=== PATIENT | male | born 1945 | race Hispanic/Latino ===

== ENCOUNTER → 2024-03-04 | Outpatient (CLI) | payer MEDICARE | END | disposition home or self-care (01) | LOC: SHCH 10:57 | PROVIDERS: ATTEND Internal Medicine Cardiovascular Disease | DX: I87.1 Compression of vein (principal); I87.2 Venous insufficiency (chronic) (peripheral); I73.9 Peripheral vascular disease, unspecified | CPT/HCPCS: 93925; 93970 ==

== ENCOUNTER 2024-10-07 19:04 | Emergency (ER) | payer MEDICARE ==
[~2024-10-07] VITALS: Ht 165.1 cm; Wt 88.0 kg
[~2024-10-07 19:04] MED LIST: CHOL2000 PO; LISI10TA24 PO; METF-527 PO; PROP10TA10 PO; ROSU5TAB51 PO
--- NOTE | 2024-10-07 19:16 | ERN ---
ED Note History of Present Illness Stated Complaint: RT LEG PAIN Chief Complaint: Lower Extremity Pain/Injury Time Seen by MD: 19:05 Time Seen by Midlevel: 19:10 Dictation: Mr. Canseco is a 79 year old gentleman with history of hypertension, hyperlipidem ia, type II DM, and chronic low back pain/sciatica who into the emergency department this evening for evaluation of right leg pain. He reports chronic low back pain/sciatica as well as generalized weakness. He states for the past 24 hours he has been experiencing pain in right hip radiating down leg to knee. He also reports blood glucose readings as well as frequent urination. He denies trauma/fall, fever, chills, shortness of breath, cough, chest pain, palpitations, edema, abdominal pain, nausea, vomiting, diarrhea, dysuria, incontinence bowel/bladder, saddle anesthesia, headache, dizziness, or focal weakness/paresthesia. He states he has tried topical analgesic but pain persists. Currently he rates pain 10/10. Allergies: Coded Allergies: ibuprofen (Unverified Allergy, Unknown, 04/05/24) Home Meds Reported Medications Cholecalciferol (Vitamin D3) (Vitamin D3) 50 Mcg (2000 Unit) Capsule, 1 CAP PO DAILY for 30 Days, #30 CAP 0 Refills 04/05/24 Rosuvastatin Calcium (Rosuvastatin Calcium) 5 Mg Tablet, 1 TAB PO DAILY for high cholesterol for 30 Days, #30 TAB 0 Refills 04/05/24 Lisinopril (Lisinopril) 10 Mg Tablet, 10 MG PO BID, TAB 04/05/24 Propranolol HCl (Propranolol HCl) 10 Mg Tablet, 10 MG PO TID, TAB 04/05/24 Metformin HCl (Metformin HCl ER) 1,000 Mg Tab.er.24, 1000 MG PO BID 04/05/24 Past Medical History Past Medical History: Diabetes-Type II, High Cholesterol, Hypertension, Other Additional Past Medical Hx: SCIATIC Surgical History: Cholecystectomy, Other Surgical History Other: HERNIA, PITUITARY PSYCH History: no pertinent psych hx Social History: Negative, Lives with family RN Note Reviewed/Agreed w/PFSH: Yes Review of System Dictation REVIEW OF SYSTEMS: CONSTITUTIONAL: Patient denies fevers, chills, sweats and weight changes. EYES: Patient denies any visual symptoms. EARS, NOSE, AND THROAT: No difficulties with hearing. No symptoms of rhinitis or sore throat. CARDIOVASCULAR: Patient denies chest pains, palpitations, orthopnea and paroxysmal nocturnal dyspnea. RESPIRATORY: No dyspnea on exertion, no wheezing or cough. GI: No nausea, vomiting, diarrhea, constipation, abdominal pain, hematochezia or melena. Denies bowel incontinence : No urinary hesitancy or dribbling. No abnormal urethral discharge. Denies incontinence. Reports frequent urination. MUSCULOSKELETAL: Reports history of chronic back pain/sciatica. Reports pain right hip radiating down like to knee. Rates pain 10/10. NEUROLOGIC: No chronic headaches, no seizures. Patient denies numbness, tingling or weakness. No saddle anesthesia. PSYCHIATRIC: Patient denies problems with mood disturbance. No problems with anxiety. ENDOCRINE: No excessive urination or excessive thirst. DERMATOLOGIC: Patient denies any rashes or skin changes. Initial Vital Sign VS Vital Signs Date Time Temp Pulse Resp B/P (MAP) Pulse Ox O2 Delivery O2 Flow Rate FiO2 10/07/24 19:05 99.0 74 20 139/53 98 10/07/24 21:00 Room Air* 0 21 Physical Exam Dictation Vital signs: Reviewed. Afebrile Constitutional: No acute distress. Non-toxic appearing. Head/Face: Normocephalic, atraumatic. Eyes: Periorbital areas with no swelling, redness, or edema. Lids and lashes are normal. Conjunctival injection is absent. Sclera anicteric. Pupils equal, round, reactive to light. ENT: Pinnas intact and no signs of trauma or erythema. Ear canals clear and no discharge. TMs no erythema. No nasal discharge or bleeding noted. Oropharynx with no exudate, redness, swelling, masses, exudates, or evidence of obstruction. Uvula midline. Mucous membranes moist. Neck: Trachea midline, no masses palpated, and no cervical lymphadenopathy. No swelling. Supple, full range of motion. Chest/Axilla: No tenderness, no crepitus, no paradoxical movement, no retractions. Cardiovascular: Regular rate, regular rhythm, no murmur, no gallops. Symmetric pulses. No peripheral edema. Respiratory: Respirations even and unlabored. Lung sounds clear; no wheezes, rales or rhonchi. Room air SpO2 98% Gastrointestinal: Inspection is normal. No distention is appreciated. Bowel sounds are normal. No mass or organomegaly . There is no tenderness. No rebound. No rigidity. No voluntary or involuntary guarding. No [place]agua's sign. Urine cloudy/yellow. Neurological: Normal speech, gross motor function intact, gross sensory function intact. No focal weakness/Paresthesia. Musculoskeletal/Extremities: All extremities have full range of motion, Symmetric pulses. There is tenderness upon palpation lumbar region; no step- offs, crepitus/deformity noted. Integumentary: Intact. Skin is normal color, warm and dry. Cap refill less than 3 seconds. Results (Laboratory/Radiology) Laboratory/Radiology Laboratory Tests Test 10/07/24 19:42 10/07/24 19:46 Urine Color LIGHT-YELLOW (YELLOW) Urine Appearance CLEAR (CLEAR) Urine pH 5.5 (5.0-8.0) Urine Specific [place] 1.018 (1.001-1.031) Urine Protein NEGATIVE mg/dL (NEGATIVE) Urine Glucose (UA) NEGATIVE mg/dL (NEGATIVE) Urine Ketones 5 mg/dL (NEGATIVE) H Urine Occult Blood NEGATIVE (NEGATIVE) Urine Nitrate NEGATIVE (NEGATIVE) Urine Bilirubin NEGATIVE mg/dL (NEGATIVE) Urine Urobilinogen 0.2 mg/dL (0.2-1.0) Urine Leukocyte Esterase 500 Dino/uL (NEGATIVE) H Urine RBC 6-10 /HPF (0-1) H Urine WBC 11-25 /HPF (0-1) H Urine Squamous Epithelial Cells RARE /HPF (0-2) Urine Bacteria RARE /HPF (None Seen) Urine Yeast with Hyphae RARE /HPF (None Seen) White Blood Count 9.4 K/uL (4.8-10.8) Red Blood Count 4.24 MIL/uL (4.50-6.20) L Hemoglobin 12.8 g/dL (14.0-18.0) L Hematocrit 38.9 % (42-54) L Mean Corpuscular Volume 91.7 fL (79-99) Mean Corpuscular Hemoglobin 30.2 pg (27.0-33.0) Mean Corpuscular Hemoglobin Concent 32.9 g/dL (32.0-36.0) Red Cell Distribution Width 14.3 % (11.0-15.5) Platelet Count 185 K/uL (130-400) Mean Platelet Volume 11.2 fL (7.5-10.5) H Immature Granulocyte % (Auto) 0.5 % (0-1) Neutrophils (%) (Auto) 67.4 % (40.0-77.0) Lymphocytes (%) (Auto) 13.5 % (21.0-51.0) L Monocytes (%) (Auto) 14.9 % (3.0-13.0) H Eosinophils (%) (Auto) 2.8 % (0.0-8.0) Basophils (%) (Auto) 0.9 % (0.0-5.0) Neutrophils # (Auto) 6.3 K/uL (1.8-7.7) Lymphocytes # (Auto) 1.3 K/uL (1.0-4.8) Monocytes # (Auto) 1.4 K/uL (0.1-1.0) H Eosinophils # (Auto) 0.26 K/uL (0.00-0.70) Basophils # (Auto) 0.08 K/uL (0.00-0.20) Absolute Immature Granulocyte (auto 0.05 K/uL (0-1) Nucleated Red Blood Cells 0.0 % (0.0-0.19) Sodium Level 136 mmol/L (136-145) Potassium Level 4.2 mmol/L (3.5-5.1) Chloride Level 102 mmol/L (101-111) Carbon Dioxide Level 25 mmol/L (21-32) Blood Urea Nitrogen 13 mg/dL (7-18) Creatinine 0.6 mg/dL (0.5-1.3) Glomerular Filtration Rate Calc 99 mL/min (>90) Random Glucose 156 mg/dL (70-105) H Total Calcium 9.3 mg/dL (8.5-10.1) CT Scan Comment: PATIENT: ONEIDA CANSECO MR#: [id number] : 1945 SEX: M AGE: 79 LOCATION: [facility] ORDER 16 STATUS: REG ER REPORT#: [id number] SERVICE 12 REASON: R lumbar pain radiates right leg ORDERING PHYSICIAN: ANGELIKA QUINONEZ NP PROCEDURE: L SPIN WO - CT LUMBAR SPINE W/O CONTRAST CT LUMBAR SPINE W/O CONTRAST CLINICAL HISTORY: R lumbar pain radiates right leg TECHNIQUE: Sequential axial images of lumbar spine without contrast and with sagittal and coronal reconstructions. CT was performed with one or more of the following dose reduction techniques: automated exposure control, adjustment of the mA and/or kV according to patient size, or use of iterative reconstruction technique COMPARISON: None FINDINGS: There is grade 2 anterolisthesis of L5 on S1 secondary to bilateral pars defects at L5 with accentuation of the normal lumbar lordosis and multilevel vacuum disc phenomena and bony ossified production. There is multilevel central canal and neural foraminal stenosis most advanced at L4-5 and L5-S1. 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 DICTATED BY: RIKKI ALAMO DO DATE: 10/07/242017 ELECTRONICALLY SIGNED BY: RIKKI ALAMO DO DATE: 10/07/242022 ED Course ED Course Orders Procedure Category Date Status Time Ct Lumbar Spine W/O CT 10/07/24 Resulted Contrast 19:13 Diazepam 5 Mg/Ml 2 Ml PHA 10/07/24 Complete Syg (Valium 5 Mg/M 19:30 Acetaminophen With PHA 10/07/24 Complete Codeine (Tylenol-Code 19:30 Us Venous Doppler US 10/07/24 Resulted Unilateral 19:26 Urinalysis Profile LAB 10/07/24 Complete 19:26 Cbc With Differential LAB 10/07/24 Complete 19:30 Basic Metabolic Panel LAB 10/07/24 Complete 19:30 Culture Urine EMELY 10/07/24 In Process 20:00 Current Medications Medications (Trade) Dose Ordered Sig/Ashley Route PRN Reason Start Time Stop Time Status Last Admin Dose Admin Acetaminophen/ Codeine Phosphate (TYLenol-coDEINE TAB) 1 tab ONCE ONCE PO 10/07/24 19:30 10/07/24 19:31 DC 10/07/24 19:22 Diazepam (VALium 5 MG/ML 2 ML SYG) 5 mg ONCE ONCE IM 10/07/24 19:30 10/07/24 19:31 DC 10/07/24 19:22 Vital Signs Date Time Temp Pulse Resp B/P (MAP) Pulse Ox O2 Delivery O2 Flow Rate FiO2 10/07/24 21:00 98.6 72 18 130/55 95 Room Air* 0 21 10/07/24 19:05 99.0 74 20 139/53 98 Vital signs remained stable; afebrile and normotensive with room air SpO2 95- 98%. Patient is able to ambulate but is experiencing increased pain in that right hip. CT scan of the lumbar spine revealed bilateral pars defects at L5 with resulting grade 2 anterolisthesis of L5 on S1 as well as multilevel degenerative changes of the spine with advanced central canal and neuroforaminal stenosis demonstrated at L4-5 and L5-S1. UA positive for leukocyte esterase, bacteria, and UWBC 11-25; culture pending. While in the ED he received doses Valium, Tylenol #3 and Bactrim DS. Findings were discussed with patient and family and all questions were answered. Recommend follow up with his PCP on Wednesday. Medical Decision Making MDM MDM: Differential diagnosis: Lumbar spine injury, spinal stenosis, UTI Rationale: Tests considered and ordered secondary to shared decision making include: Lab, CT Previous outside records reviewed: Old ER visits. Risk of complication and/or morbidity or mortality of patient management: None Medications-Per medication reconciliation Need for hospitalization: Patient does not meet criteria for hospitalization. Need for emergency major/minor surgery: No There are no social concerns with this patient. Prescription drug management: Bactrim DS, Flexeril Prescriptions will include symptomatic care Patient's prior external medical records from other ER visits were reviewed by me as indicated. Prior testing and results from previous visits were reviewed. Prior tests were taken into account with medical decision making and resource utilization, independent historian/historians were used to obtain complete medical history. I independently interpreted the test that were performed, results were reviewed by me and considered findings on radiology if ordered. Medical management and examination interpretation discussions were had by me with other qualified healthcare professionals as indicated for the patient's care. DX & DISP Disposition: Discharge Departure Impression: Primary Impression: Lumbar foraminal stenosis Additional Impressions: Back pain, UTI (urinary tract infection) Condition: Stable Scripts Cyclobenzaprine HCl (Cyclobenzaprine HCl) 5 Mg Tablet 5 MG PO BID PRN, #12 TAB 0 Refills Prov: ANGELIKA QUINONEZ [employer] 10/07/24 Sulfamethoxazole/Trimethoprim (Bactrim Ds Tablet) 800 Mg-160 Mg Tablet 1 TAB PO BID for 10 Days, #20 TAB 0 Refills Prov: ANGELIKA QUINONEZ NP 10/07/24 Additional Instructions: . Gentle stretching exercises. Drink plenty of fluid. Get plenty of rest. May take a Flexeril every 12 hours as needed for back pain/spasm. May take [id number] Tylenol as needed for discomfort. Continue with antibiotic Bactrim DS twice daily for the next 10 days. You will need to follow up with your PCP early next week. Recommend additional imaging as well as possible referral to physical therapy and/or specialist. Return to the emergency department for any worsening of symptoms or concerns. Referrals: ELADIA MIKE MD (PCP) Time of Disposition: 21:25 ANGELIKA QUINONEZ NP October 07, 2024 19:16
[2024-10-07] MEDS: diazePAM 5 MG/ML 2 ML SYG IM ONE (19:22)
[2024-10-07] MEDS: acetaMINOPHEN WITH coDEINE 1 TAB TAB PO ONE (19:22)
[2024-10-07 19:57] LABS: BASOPHILS # (AUTO) 0.08 K/uL (0.00-0.20); BASOPHILS % (AUTO) 0.9 % (0.0-5.0); EOSINOPHILS # (AUTO) 0.26 K/uL (0.00-0.70); EOSINOPHILS % (AUTO) 2.8 % (0.0-8.0); HEMATOCRIT 38.9 % (42-54); IMMATURE GRANULOCYTE ABSOLUTE 0.05 K/uL (0-1); LYMPHOCYTES # (AUTO) 1.3 K/uL (1.0-4.8); LYMPHOCYTES % (AUTO) 13.5 % (21.0-51.0); MEAN CORPUSCULAR HEMOGLOBIN 30.2 pg (27.0-33.0); MEAN CORPUSCULAR HGB CONC 32.9 g/dL (32.0-36.0); MEAN CORPUSCULAR VOLUME 91.7 fL (79-99); MONOCYTES # (AUTO) 1.4 K/uL (0.1-1.0); MONOCYTES % (AUTO) 14.9 % (3.0-13.0); NEUTROPHILS # (AUTO) 6.3 K/uL (1.8-7.7); NEUTROPHILS % (AUTO) 67.4 % (40.0-77.0); PLATELET COUNT (AUTO) 185 K/uL (130-400); RED BLOOD CELL COUNT(AUTO) 4.24 MIL/uL (4.50-6.20); RED CELL DISTRIBUTION WIDTH 14.3 % (11.0-15.5); WHITE BLOOD COUNT (AUTO) 9.4 K/uL (4.8-10.8)
[2024-10-07 19:59] LABS: APPEARANCE,URINE CLEAR (CLEAR); BILIRUBIN,URINE NEGATIVE (NEGATIVE); COLOR,URINE LIGHT-YELLOW (YELLOW); GLUCOSE, URINE (UA) NEGATIVE (NEGATIVE); KETONES,URINE 5 mg/dL (NEGATIVE); LEUKOCYTE ESTERASE ,URINE 500 Leu/uL (NEGATIVE); NITRATE,URINE NEGATIVE (NEGATIVE); OCCULT BLOOD,URINE NEGATIVE (NEGATIVE); PH,URINE 5.5 (5.0-8.0); PROTEIN,URINE NEGATIVE (NEGATIVE); UROBILINOGEN,URINE 0.2 mg/dL (0.2-1.0)
[2024-10-07 20:00] LABS: ADD UA MICROSCOPIC YES
[2024-10-07 20:07] LABS: BACTERIA,URINE RARE /HPF (None Seen); MUCUS,URINE RARE LPF (None Seen); SQUAMOUS EPITHELIAL CELL,UR RARE /HPF (0-2); YEAST,URINE HYPHAE RARE /HPF (None Seen)
[2024-10-07 20:14] LABS: CREATININE 0.6 mg/dL (0.5-1.3); POTASSIUM 4.2 mmol/L (3.5-5.1)
--- NOTE | 2024-10-07 20:23 | HMCIMG ---
CT LUMBAR SPINE W/O CONTRAST CLINICAL HISTORY: R lumbar pain radiates right leg TECHNIQUE: Sequential axial images of lumbar spine without contrast and with sagittal and coronal reconstructions. CT was performed with one or more of the following dose reduction techniques: automated exposure control, adjustment of the mA and/or kV according to patient size, or use of iterative reconstruction technique COMPARISON: None FINDINGS: There is grade 2 anterolisthesis of L5 on S1 secondary to bilateral pars defects at L5 with accentuation of the normal lumbar lordosis and multilevel vacuum disc phenomena and bony ossified production. There is multilevel central canal and neural foraminal stenosis most advanced at L4-5 and L5-S1. 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
--- NOTE | 2024-10-07 20:50 | HMCIMG ---
US VENOUS DOPPLER UNILATERAL CLINICAL HISTORY: pain right groin/right leg COMPARISON: None FINDINGS: Right lower extremity venous Doppler ultrasound was performed. The greater saphenous, common femoral, deep femoral, femoral , popliteal veins are widely patent and easily compressible with the ultrasound probe. Calf veins appear normal as well. There is normal response to compression and augmentation. IMPRESSION: Normal right lower extremity venous Doppler ultrasound.
[2024-10-07] MEDS ORDERED: CYCL5TAB3 PO (21:24)
[2024-10-07] MEDS ORDERED: SULF1TAB42 PO (21:24)
[2024-10-07] MEDS: sulfaMETHOX-TMP DS 800/160 TAB PO ONE (21:43)
[2024-10-07 21:57] VITALS: BP 126/59; PULSE 70; RESP 18; TEMP 98.5; O2SAT 98
== END 2024-10-07 21:57 | disposition home or self-care (01) ==
LOC: EDH 19:04
DX: M48.061 Spinal stenosis, lumbar region without neurogenic claudication (principal); M54.50 Low back pain, unspecified; N39.0 Urinary tract infection, site not specified; E11.9 Type 2 diabetes mellitus without complications; E78.00 Pure hypercholesterolemia, unspecified; I10 Essential (primary) hypertension; Z79.84 Long term (current) use of oral hypoglycemic drugs; Z79.899 Other long term (current) drug therapy; Z88.6 Allergy status to analgesic agent; Z90.49 Acquired absence of other specified parts of digestive tract
CPT/HCPCS: 99285; 72131; 93971; 80048; 85025; 87086; 81001; 36415; 96372; J3360

== ENCOUNTER 2025-04-17 07:15 | Day surgery (SDC) | payer MEDICARE ==
[~2025-04-17] VITALS: Ht 165.1 cm; Wt 85.3 kg
[2025-04-17] VITALS (10 sets, daily range): BP systolic 111–151; BP diastolic 53–75; PULSE 50–62; RESP 13–20; TEMP 97.4–97.8
[~2025-04-17 07:15] MED LIST changes: +DICL2.5D7 OD; -LISI10TA24 PO; +LISI40TA15 PO
[2025-04-17] MEDS: 0.9%NACL 1000ML 1,000 ML IV ONE (07:44)
--- NOTE | 2025-04-17 10:50 | NUR ---
Full and complete discharge instructions given to Patient and Family both verbally and in writing. Tolerated fluids and voided in bathroom. PIV removed with catheter tip intact. W/C to POV with Family to home.
== END 2025-04-17 10:50 | disposition home or self-care (01) ==
LOC: ENDO 07:15 → DAH 07:15 → ENDO 10:50
PROVIDERS: ATTEND Internal Medicine Gastroenterology
DX: I85.00 Esophageal varices without bleeding (principal); K76.6 Portal hypertension; K31.89 Other diseases of stomach and duodenum; K74.69 Other cirrhosis of liver; I25.10 Atherosclerotic heart disease of native coronary artery without angina pectoris; E78.5 Hyperlipidemia, unspecified; E11.9 Type 2 diabetes mellitus without complications; I48.91 Unspecified atrial fibrillation; E66.9 Obesity, unspecified; Z68.32 Body mass index [BMI] 32.0-32.9, adult; Z90.49 Acquired absence of other specified parts of digestive tract; Z88.1 Allergy status to other antibiotic agents; Z79.899 Other long term (current) drug therapy; Z98.890 Other specified postprocedural states
CPT/HCPCS: 82948 ×2; 43235; J7030 ×2; J2704; A4620; A4215 ×2; A4223; A7002; A4222; A4221; A4663; A4606; J3490